=== PATIENT | male | born 1950 | race Caucasian/White ===

== ENCOUNTER 2019-10-22 14:57 | Outpatient (CLI) | payer OTHER | END 2019-10-22 23:59 | disposition home or self-care (01) | LOC: RAD 14:57 | PROVIDERS: ATTEND Neurological Surgery | DX: M41.86 Other forms of scoliosis, lumbar region (principal); M51.36 Other intervertebral disc degeneration, lumbar region; M51.34 Other intervertebral disc degeneration, thoracic region; M50.30 Other cervical disc degeneration, unspecified cervical region | CPT/HCPCS: 72082 ==